=== PATIENT | female | born 1940 | race Caucasian/White ===

== ENCOUNTER 2021-12-18 08:00 | Outpatient (CLI) | payer MEDICARE, SELFPAY ==
[2021-12-18 14:29] LABS: TSH With Reflex to FT4* 0.945 uIU/mL (0.270-4.200)
[2021-12-18 15:23] LABS: Chloride* 100 mmol/L (96-114)
[2021-12-18 15:24] LABS: Albumin* 4.4 g/dL (3.3-5.0); Sodium* 138 mmol/L (135-149)
[2021-12-18 15:25] LABS: Potassium* 3.8 mmol/L (3.6-5.1)
[2021-12-18 15:26] LABS: Carbon Dioxide* 29 mmol/L (20-32); Cholesterol* 176 mg/dL (90-199)
[2021-12-18 15:27] LABS: Alanine Aminotransferase* 19 U/L (4-35); Alkaline Phosphatase* 94 U/L (40-150); Aspartate Amino Transferase* 33 U/L (12-35); Bilirubin Total* 0.6 mg/dL (0.1-1.5); Blood Urea Nitrogen* 21 mg/dL (7-30); Calcium* 9.6 mg/dL (8.4-10.6); Glucose* 95 mg/dL (60-115); Total Protein* 7.4 g/dL (6.0-8.3); Triglycerides* 80 mg/dL (40-149)
[2021-12-18 15:28] LABS: HDL Cholesterol* 76 mg/dL (>=50); LDL Cholesterol Calculated 84 mg/dL (<100)
[2021-12-18 15:43] LABS: Estimated Glomerular Filt Rate 57 ml/min
== END 2021-12-18 08:01 | disposition home or self-care (01) ==
LOC: FRMREF 08:01
PROVIDERS: PCP Physician Assistant Medical; Visit Provider Physician Assistant Medical
DX: E03.9 Hypothyroidism, unspecified (principal); I10 Essential (primary) hypertension; E78.5 Hyperlipidemia, unspecified; E55.9 Vitamin D deficiency, unspecified; Z79.899 Other long term (current) drug therapy
CPT/HCPCS: 80053; 80061; 84443

== ENCOUNTER 2022-09-25 07:44 | Outpatient (CLI) | payer MEDICARE, SELFPAY | END 2022-09-25 07:45 | disposition home or self-care (01) | LOC: NFLDREF 09-30 10:37 | PROVIDERS: PCP Physician Assistant Medical; Referring Provider Physician Assistant Medical; Visit Provider Family Medicine | DX: E55.9 Vitamin D deficiency, unspecified (principal); I10 Essential (primary) hypertension; E05.00 Thyrotoxicosis with diffuse goiter without thyrotoxic crisis or storm; R53.83 Other fatigue | CPT/HCPCS: 80048; 82043; 82306; 82570; 83735; 84443 ==

== ENCOUNTER 2022-11-20 08:05 | Outpatient (REF) | payer MEDICARE, SELFPAY | END 2022-11-20 08:06 | disposition home or self-care (01) | LOC: NFLDREF 08:05 | PROVIDERS: PCP Physician Assistant Medical; Referring Provider Physician Assistant Medical; Visit Provider Physician Assistant Medical | DX: E03.9 Hypothyroidism, unspecified (principal); E55.9 Vitamin D deficiency, unspecified; E78.2 Mixed hyperlipidemia; I10 Essential (primary) hypertension | CPT/HCPCS: 80053; 80061; 82306; 84443 ==

== ENCOUNTER 2022-12-22 08:28 | Outpatient (CLI) | payer MEDICARE, SELFPAY | END 2022-12-22 08:29 | disposition home or self-care (01) | LOC: NFLDREF 12-25 13:17 | PROVIDERS: PCP Physician Assistant Medical; Referring Provider Physician Assistant Medical; Visit Provider Physician Assistant Medical | DX: E87.6 Hypokalemia (principal) | CPT/HCPCS: 84132 ==

== ENCOUNTER 2023-01-04 08:29 | Outpatient (CLI) | payer MEDICARE, SELFPAY | END 2023-01-04 08:30 | disposition home or self-care (01) | LOC: NFLDREF 01-05 10:39 | PROVIDERS: PCP Physician Assistant Medical; Referring Provider Physician Assistant Medical; Visit Provider Physician Assistant Medical | DX: E87.6 Hypokalemia (principal) | CPT/HCPCS: 84132 ==

== ENCOUNTER 2023-01-05 12:19 | Outpatient (CLI) | payer MEDICARE, SELFPAY ==
--- NOTE | 2023-01-05 13:00 | CRLHL7_ITS ---
For Patients: As a result of the Century Cures Act, medical imaging exams and procedure reports are released immediately into your electronic medical record. You may view this report before your referring provider. If you have questions, please contact your health care provider. DXA BONE MINERAL DENSITY STUDY Reason for exam: Menopausal state. Current height (in): 63. Weight (lb): 133. Menopause age: 45. Ethnicity: White. 1. Have you had a previous hip or vertebral fracture? No. 2. Have you had any fractures during your adult life which did not result from significant trauma (e.g., auto accident)? No. 3. Did either of your parents have a hip fracture? No. 4. Do you smoke? No. 5. Have you ever taken Glucocorticoids? No. 6. Do you have rheumatoid arthritis? No. 7. Do you have secondary osteoporosis? No. 8. Do you drink 3 or more alcoholic drinks per day? No. 9. Are you being treated for osteoporosis? No. 10. Have you ever taken any of the following medications: Actonel, Evista, Fosamax, Miacalcin, Reclast, Boniva, Forteo, HRT (i.e. estrogen/hormone therapy), Protelos, Prolia, Vitamin D, Calcium, other ??? please specify. ANSWER: Yes, vitamin D, calcium. 11. Do you have any of the following medical conditions: Anorexia or bulimia, asthma or emphysema, end stage renal disease, hyperparathyroidism, any seizure disorders, cancer, inflammatory bowel diseases, hysterectomy, other ??? please specify. ANSWER: No. 12. What was your maximum height (inches)? 63. 13. Do you perform weight bearing exercise regularly? Yes. 14. Do you regularly consume dairy products? Yes. 15. Do you drink caffeinated beverages? Yes. If female: 16. At what age did your period start? 15. 17. Are you premenopausal? No. 18. How many full term pregnancies have you had? 2. 19. Have you ever missed your period for more than 6 months in a row (not including or menopause)? No. TECHNIQUE: Bone mineral density study was performed using the [employer]. FINDINGS: The results of the study expressed as bone mineral density (BMD) are as follows: Lumbar spine L1, L2, L4: BMD: 0.882 g/cm2. T-score: -1.4. Z-score: 1.3. Neck Left: BMD: 0.507 g/cm2. T-score: -3.1. Z-score: -0.7. Right: BMD: 0.653 g/cm2. T-score: -1.8. Z-score: 0.6. Total Left: BMD: 0.727 g/cm2. T-score: -1.8. Z-score: 0.4. Right: BMD: 0.749 g/cm2. T-score: -1.6. Z-score: 0.6. IMPRESSION: Osteoporosis. *Comparison exams done prior to 07/2019 were performed on different unit, [facility]. COMPARISON: Compared with scan of 12/21/2011, the bone mineral density has decreased by 1.9 percent at the spine. Compared with scan of 12/05/2020 the bone mineral density has increased by 3.3 percent at the hip. Compared with scan of 12/21/2011, the bone mineral density has decreased by 6.0 percent at the hip. Abran Sanchez M.D. Diagnostic/Nuclear Medicine Radiologist [email or web address] NUNO/Dictated by: Abran Sanchez MD @ 01/06/2023 10:44:00 AM (Electronically Signed)
== END 2023-01-05 12:20 | disposition home or self-care (01) ==
PROVIDERS: PCP Physician Assistant Medical; Visit Provider Physician Assistant Medical
DX: Z78.0 Asymptomatic menopausal state (principal); M81.0 Age-related osteoporosis without current pathological fracture
CPT/HCPCS: 77080

== ENCOUNTER 2023-12-27 07:48 | Outpatient (CLI) | payer MEDICARE, SELFPAY | END 2023-12-27 07:49 | disposition home or self-care (01) | LOC: NFLDREF 12-29 13:11 | PROVIDERS: PCP Physician Assistant Medical; Referring Provider Physician Assistant Medical; Visit Provider Physician Assistant Medical | DX: Z00.00 Encounter for general adult medical examination without abnormal findings (principal); E03.9 Hypothyroidism, unspecified; I10 Essential (primary) hypertension; E78.2 Mixed hyperlipidemia; E87.6 Hypokalemia; E55.9 Vitamin D deficiency, unspecified; R79.89 Other specified abnormal findings of blood chemistry | CPT/HCPCS: 80053; 80061; 82306; 82607; 84439; 84443 ==